=== PATIENT | male | born 1975 | race African-American/Black ===

== ENCOUNTER 2018-03-30 18:23 | Emergency (ER) | payer OTHER ==
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
[2018-03-30 18:39] VITALS: BP 132/91; PULSE 76; TEMP 98.8; BMI 34.1
[2018-03-30] MEDS ORDERED: ACETAMINOPHEN 500 MG TABLET (FP) PO STA (18:44)
[2018-03-30] MEDS ORDERED: ACETAMINOPHEN 325 MG TABLET (FP) ONE (20:06)
== END 2018-03-30 22:43 | disposition home or self-care (01) ==
LOC: JER 18:23
DX: M25.561 Pain in right knee (principal); S09.90XA Unspecified injury of head, initial encounter; W22.01XA Walked into wall, initial encounter; Y93.89 Activity, other specified; Y92.159 Unspecified place in reform school as the place of occurrence of the external cause; Y99.0 Civilian activity done for income or pay
CPT/HCPCS: 70450-TC; 73562-TC-RT-FY; 99282-25